=== PATIENT | female | born 1965 | race African-American/Black ===

== ENCOUNTER 2017-03-02 12:40 | Emergency (ER) | payer OTHER ==
[~2017-03-02] VITALS: Ht 165.1 cm; Wt 68.0 kg
[2017-03-02 12:43] VITALS: BP 152/96
[2017-03-02] MEDS ORDERED: Norco 5mg/325mg tab ORAL ONE (13:00)
[2017-03-02] MEDS ORDERED: ROBAXIN-750750 MG PO (14:06)
[2017-03-02] MEDS ORDERED: IBUPROFEN600 MG ORAL (14:06)
[2017-03-02 14:27] VITALS: BP 152/96
--- NOTE | 2017-03-02 14:57 | Emergency Room Report ---
History of Present Illness General Chief Complaint: Pain Source: Patient Present Illness HPI The patient is a 51-year-old female who denies any medical history presenting for left thigh pain which began this morning after waking up. She denies any known reason for this and denies any trauma. Pain is described as a 9/10 dull ache to the outside of the L thigh pain is worse with walking. No radiating pain. Pt has not noticed swelling or discoloration of leg. She denies any other symptoms including N, V, F, chills, itching, calf pain, dysuria, hematuria, flank pain, abd pain, CP, SOB Allergies: Coded Allergies: No Known Allergies (Unverified , 03/02/17) Patient History Past Medical History: see triage record Pertinent Family History: none Reviewed Nursing Documentation: PMH: Agreed, PSxH: Agreed Nursing Documentation-PMH Past Medical History: No Stated History Review of Systems All Other Systems: negative except mentioned in HPI Physical Exam Vital Signs Date Time Temp Pulse Resp B/P Pulse Ox O2 Delivery O2 Flow Rate FiO2 03/02/17 12:43 97.7 90 20 152/96 100 Room Air Sp02 EP Interpretation: reviewed, normal General Appearance: no apparent distress, alert, GCS 15, non-toxic Head: normocephalic, atraumatic Eyes: bilateral eye PERRL, bilateral eye normal inspection ENT: hearing grossly normal, normal pharynx, no angioedema, normal voice Neck: full range of motion, supple/symm/no masses Respiratory: chest non-tender, lungs clear, normal breath sounds, speaking full sentences Musculoskeletal: normal inspection, back normal, normal range of motion, no calf tenderness, tender - TTP over the L lateral thigh Neurologic: alert, oriented x3, responsive, motor strength/tone normal, sensory intact, speech normal, abnormal gait Skin: normal color, no rash, warm/dry, well hydrated Lymphatic: no adenopathy Medical Decision Making PA Attestation Dr. rocha is my supervising physician. Patient management was discussed with my supervising physician Diagnostic Impression: Primary Impression: Muscle strain of left hip Qualified Codes: S76.012A - Strain of muscle, fascia and tendon of left hip, initial encounter ER Course The patient is a 51-year-old female who denies any medical history presenting for left thigh pain Ddx considered include but not limited to sprain/strain, fracture, contusion, DVT PE: No tachypnea. Afebrile. NAD L thigh: There is tenderness to palpation over the proximal lateral region. No discoloration. No edema. Full active range of motion of the hip and knee. No calf swelling or tenderness X-ray of the hip and femur are unremarkable The patient will be discharged home with a prescription for Motrin and Robaxin. She will followup with PMD. ER precautions given Other X-Ray Diagnostic Results Other X-Ray Diagnostic Results #1: X-Ray Ordered: L hip Date: Mar 02, 2017 Findings: no fractures, no dislocation, no soft tissue swelling Number of Views: 4 PA Scribe Text I am acting as scribe for my supervising physician. My supervising physician's interpretation of the L hip xrays are there are no fractures, dislocations or soft tissue swelling. Other X-Ray Diagnostic Results #2: X-Ray Ordered: L femur Date: Mar 02, 2017 Findings: no fractures, no dislocation, no soft tissue swelling Number of Views: 4 PA Scribe Text I am acting as scribe for my supervising physician. My supervising physician's interpretation of the L hip xrays are there are no fractures, dislocations or soft tissue swelling. Last Vital Signs Date Time Temp Pulse Resp B/P Pulse Ox O2 Delivery O2 Flow Rate FiO2 03/02/17 14:10 97.7 03/02/17 12:43 90 20 152/96 100 Room Air Status: improved Disposition: HOME, SELF-CARE Condition: Improved Scripts Methocarbamol* (ROBAXIN-750*) 750 Mg Tablet 750 MG PO TID, #21 TAB 0 Refills Prov: TERZIAN,BLEU P.A. 03/02/17 Ibuprofen* (MOTRIN*) 600 Mg Tablet 600 MG ORAL Q8H Y for For Pain, #30 TAB 0 Refills Prov: TERZIAN,BLUE P.A. 03/02/17 Patient Instructions: Muscle Strain Additional Instructions: I discussed my findings with the patient. All questions and concerns have been answered. Treatment and medication compliance have been addressed. I advised the patient that they need to follow up with PMD in 3-5 days. Return to ED if pain remains or worsens, numbness or tingling occurs, new rash is noticed, fever is noticed, or if needed for any reason. Patient verbalized understanding of discharge instructions. BLUE WALLACE Mar 02, 2017 14:57
--- NOTE | 2017-03-02 15:56 | Diagnostic Imaging Report ---
Indications: Left hip pain Technique: Two views left hip Findings: Comparison: None. Pubis symphysis excluded from image, limiting evaluation. No fracture, dislocation, lytic destruction, periosteal reaction, surrounding soft tissue swelling, or other acute changes are demonstrated. No deformity, alignment abnormality, arthritic change, soft tissue calcification, or other chronic changes are demonstrated. IMPRESSION: Negative left hip series, with limitation as described.
--- NOTE | 2017-03-02 16:53 | Diagnostic Imaging Report ---
Indications: Left thigh pain Technique: Two views left thigh Findings: Comparison: None. No fracture, dislocation, lytic destruction, periosteal reaction, surrounding soft tissue swelling, or other acute changes are demonstrated. No deformity, alignment abnormality, arthritic change, soft tissue calcification, or other chronic changes are demonstrated. IMPRESSION: Negative left thigh series.
== END 2017-03-02 14:27 | disposition home or self-care (01) ==
LOC: EMR 13:01
DX: S76.012A Strain of muscle, fascia and tendon of left hip, initial encounter (principal); X58.XXXA Exposure to other specified factors, initial encounter; Y92.9 Unspecified place or not applicable
CPT/HCPCS: 73502; 99284